=== PATIENT | male | born 1985 | race Caucasian/White ===

== ENCOUNTER 2016-07-16 01:27 | Inpatient (IN) | payer SELFPAY ==
[~2016-07-16] VITALS: Ht 175.3 cm; Wt 60.0 kg
--- NOTE | 2016-07-16 01:54 | EMERGENCY ROOM VISIT NOTE ---
History Report prepared by Raheem: Giovanni Wallace Under the Supervision of: Dr. Rosario Monterroso D.O. First contact with patient: 01:33 Chief Complaint: MENTAL HEALTH EVALUATION Stated Complaint: 302 - PSP History of Present Illness The patient is a 31 year old male who presents to the Emergency Room for an acute mental health evaluation. The patient's mother called the police after he told her that he would hang himself earlier tonight. The patient denies suicidal ideations, and states that he said he would hang himself to spite his mother. The patient admits to having half a beer and marijuana earlier. The patient has been 302'd in the past, which he also attributes to his mother. He denies a mental health history. The patient is homeless. He is currently watching a friend's place in [place] while they stay in [place]. The patient has been eating well. The patient cannot find a job because of his criminal record. He denies any abdominal pain, or urinary / bowel issues. The patient's mother told nursing staff that he has a history of paranoid schizophrenia. Source of History: patient, parent Onset: tonight Position: other (psyche) Quality: other (mental health evaluation) Timing: other (acute) Associated Symptoms: No abdominal pain, No diarrhea, No urinary symptoms Review of Systems See HPI for pertinent positives & negatives. A total of 10 systems reviewed and were otherwise negative. Past Medical & Surgical Medical Problems: (1) Bursitis, prepatellar, right (2) Schizotypal disorder Family History No pertinent family history Social History Smoking Status: Current Every Day Smoker Marital Status: single Housing Status: other Occupation Status: unemployed Current/Historical Medications No Active Prescriptions or Reported Meds Allergies Coded Allergies: No Known Allergies (Verified , 01/04/14) Physical Exam Vital Signs Date Time Temp Pulse Resp B/P Pulse Ox O2 Delivery O2 Flow Rate FiO2 07/16/16 02:51 75 18 121/71 100 Room Air 07/16/16 01:32 37.1 117 20 137/104 97 Room Air Physical Exam General: Extremely talkative but pleasant. Flight of ideas. HEENT: Head - normocephalic and atraumatic Pupils are equal, round, and reactive to light. Extraocular eye muscles are intact, and sclera are anicteric. Nose - moist nasal mucosa without discharge. Mouth - moist buccal mucosa. Oropharynx is nonerythematous and there is no tonsillar exudate or edema noted. Neck: Supple; no nuchal rigidity, cervical lymphadenopathy Heart: Regular rate and rhythm. There is a normal S1 and S2 with no murmurs, clicks, or gallops appreciated. Lungs: Clear to auscultation bilaterally with no wheezes, rales, or rhonchi. Abdomen: Soft, completely nontender, nondistended, with good bowel sounds. There are no palpable pulsatile masses or hepatosplenomegaly. There is no guarding, rigidity, or rebound noted. Extremities: No evidence of cyanosis, clubbing, or edema. There are easily palpable peripheral pulses. Skin: warm and dry with good turgor and no rashes. Psych: Denies suicidal ideation or plan. The patient is hyperverbal with a tangential thought process. Medical Decision & Procedures Laboratory Results 07/16/16 01:46 07/16/16 01:46 Test 07/16/16 01:46 07/16/16 02:48 Red Blood Count 5.08 M/uL (4.7-6.1) Mean Corpuscular Volume 86.6 fL (80-100) Mean Corpuscular Hemoglobin 32.1 pg (25-34) Mean Corpuscular Hemoglobin Concent 37.0 g/dl (32-36) RDW Standard Deviation 39.5 fL (36.4-46.3) RDW Coefficient of Variation 12.3 % (11.5-14.5) Mean Platelet Volume 9.7 fL (7.4-10.4) Anion Gap 8.0 mmol/L (3-11) Est Creatinine Clear Calc Drug Dose 74.3 ml/min Estimated GFR () 91.5 Estimated GFR (Non- 79.0 BUN/Creatinine Ratio 15.2 (10-20) Calcium Level 8.9 mg/dl (8.5-10.1) Total Bilirubin 2.4 mg/dl (0.2-1) Direct Bilirubin 0.4 mg/dl (0-0.2) Aspartate Amino Transf (AST/SGOT) 32 U/L (15-37) Alanine Aminotransferase (ALT/SGPT) 27 U/L (12-78) Alkaline Phosphatase 83 U/L (45-117) Total Protein 8.2 gm/dl (6.4-8.2) Albumin 4.6 gm/dl (3.4-5.0) Thyroid Stimulating Hormone (TSH) 1.830 uIu/ml (0.300-4.500) Ethyl Alcohol mg/dL < 3.0 mg/dl (0-3) Urine Opiates Screen NEG (NEG) Urine Methadone, Qualitative NEG (NEG) Urine Barbiturates NEG (NEG) Urine Phencyclidine (PCP) Level NEG (NEG) Ur Amphetamine/Methamphetamine NEG (NEG) MDMA (Ecstasy) Screen NEG (NEG) Urine Benzodiazepines Screen NEG (NEG) Urine Cocaine Metabolite NEG (NEG) Urine Marijuana (THC) POS (NEG) Laboratory results per my review. ED Course 0135: Past medical records reviewed. The patient was evaluated in room A8. A complete history and physical exam was performed. Laboratory studies were drawn as above. 0240: [facility] will see the patient. 0317: Spoke with Lonnie, the [facility] railroad yard worker. 0450: The patient is unwilling to be admitted voluntarily. 0520: The patient became hostile towards [facility] when he was told that he would be involuntarily admitted. He is now willing to go voluntarily. 0600: A bed search is being conducted. 0610: The patient refused to sign himself in when [facility] came to evaluate him. I signed the 302. Bed search will be continued. 0630: The patient was signed out to Dr. Shah at shift change to continue the bed search. Medical Decision The patient is a 31 year old male who presents to the ED for a mental health evaluation. Differential diagnosis includes drug intoxication, alcohol intoxication, mood disorder, suicidal ideation, exacerbation of paranoid schizophrenia. Laboratory interpretation: Normal H&H, no leukocytosis, glucose 125, TSH 1.8, normal renal function, total bilirubin 2.4, direct bilirubin 0.4, negative alcohol. Urine tox screen positive for marijuana. The patient presents to the emergency department after making suicidal threats to his mother. The patient admits to smoking marijuana. He is hyperverbal with a flight of ideas. He has a schizophrenia and is not taking medications at this time according to the staff for mobile crisis. He was given the opportunity sign himself in voluntarily as he had made suicidal statements but declined. The patient describes a history of inpatient psychiatric care in which he stays for 7 days then is discharged. The 302 was signed. The patient was evaluated by [facility] and they will accept him. Impression Primary Impression: Suicidal ideation Scribe Attestation The scribe's documentation has been prepared under my direction and personally reviewed by me in its entirety. I confirm that the note above accurately reflects all work, treatment, procedures, and medical decision making performed by me. Departure Information Dispostion Still a Patient Prescriptions No Active Prescriptions or Reported Meds Referrals No Doctor, Assigned (PCP) Patient Instructions A Signature Page, [facility]
[2016-07-16 02:04] LABS: MEAN CELL VOLUME 86.6 fL (80-100); MEAN CORPUSCULAR HEMOGLOBIN 32.1 pg (25-34); MEAN PLATELET VOLUME 9.7 fL (7.4-10.4); PLATELET COUNT 266 K/uL (130-400); RED BLOOD COUNT 5.08 M/uL (4.7-6.1)
[2016-07-16 02:25] LABS: BUN/CREATININE RATIO 15.2 (10-20); CALCIUM 8.9 mg/dl (8.5-10.1); CREATININE 1.2 mg/dl (0.60-1.40); POTASSIUM 3.6 mmol/L (3.5-5.1)
[2016-07-16 02:36] LABS: THYROID STIMULATING HORMONE 1.83 uIu/ml (0.300-4.500)
[2016-07-16 03:52] LABS: BENZODIAZEPINE, URINE NEG (NEG); COCAINE,URINE NEG (NEG); PHENCYCLIDINE, URINE NEG (NEG)
[2016-07-16] MEDS ORDERED: NURSING VERBAL MED ORDER ONE (06:45)
[2016-07-16 07:34] VITALS: O2SAT 100
[2016-07-16] MEDS ORDERED: ALUMINUM/MAGNESIUM SUSP 30 ML UDC PO PRN (08:30)
[2016-07-16] MEDS ORDERED: hydrOXYzine HCL 25 MG TAB PO PRN ×2 (08:30)
[2016-07-16] MEDS ORDERED: ACETAMINOPHEN 325 MG TAB PO PRN (08:30)
[2016-07-16] MEDS ORDERED: MAGNESIUM HYDROXIDE SUSP 30 ML UDC PO PRN (08:30)
[2016-07-16] MEDS ORDERED: BISMUTH SUBSALICYLATE PER ML OMNICELL CHARGE PO PRN (08:30)
[2016-07-16] MEDS ORDERED: SODIUM CHLORIDE 0.65% NA SOLN 45 ML (OCEAN) PRN (08:30)
[2016-07-16 08:39] VITALS: BP 121/71; PULSE 75; TEMP 37.1; Ht 175.3 cm; Wt 60.0 kg
[2016-07-16] MEDS ORDERED: LORAZEPAM 2 MG/ML 1 ML VIAL IM PRN (12:45)
[2016-07-16] MEDS ORDERED: HALOPERIDOL LACTATE 5 MG/ML 1 ML VIAL IM PRN (12:45)
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
[2016-07-17 06:49] VITALS: BP 116/77; PULSE 53; TEMP 36.6
--- NOTE | 2016-07-17 15:17 | Psychiatric Progress Notes ---
Progress Note Date of Service Jul 17, 2016. Chief Complaint "I will take you for your word". Subjective Patient was seen & assessed interval progress reviewed with Treatment Team. Per staff, patient slept fairly overnight, is attending groups, has not been aggressive but can be quite manic in appearance at times. Visited by stepfather last evening which reportedly went okay. Apparently the stepfather' s accent is so heavy that he was not well able to communicate with the staff to provide any additional formation. On interview, patient appears more calm and when I comment about this he states that he will take me for my word but will not characterize a change that he is able to appreciate. He is less motorically activated, however he does continue to jump out of his chair to demonstrate this or that at times during the interview. He is more focused on lack of emotional support from his mother today. He believes he can return to his mother's home the RV parked on the property at discharge. He remains interested and preoccupied by expensive clothing and asks if his stepfather is bringing in his [employer] shoes. He speaks of time spent in [place] in [place] and trying to avoid "tweakers." He denies suicidal ideation or homicidal ideation and he denies hallucinatory experiences. He remains refractory to considering any psychotropic medication trials. Review of Systems Constitutional: No chills, No fatigue, No fever, No problem reported, No sweats , No weakness, No weight loss Cardiovascular: No PND, No chest pain, No claudication, No edema, No orthopnea , No palpitations, No problem reported Sleep Information Total Hours of Sleep: 5.50 Meal Information Percent of Breakfast Consumed: 100 Percent of Lunch Consumed: 100 Percent of Dinner Consumed: 100 Mental Status Exam During interview pt is: alert and oriented, cooperative Appearance: other (well coiffed) Eye contact is: good Motor behavior is: psychomotor agitation Speech: is pressured, loud Affect: other (expansive) Mood is: other (fine) Thought process: tangential, perseveration Thought content: delusions Suicidal thought are: denied Homicidal thoughts are: denied Hallucinations: denies auditory, denies visual Cognition: memory grossly intact Intelligence estimated to be: average Insight: limited Judgement: limited Impression IMPRESSION: This is an interesting 31-year-old gentleman who sounds to have a history of similar presentations in the past. Per mother's report in the ER, he has a history of schizophrenia. Previously, he has been diagnosed with undifferentiated ptosis. He admits to crystal meth use yesterday which certainly may be precipitating some of his acute agitation and impulsivity. Consider schizoaffective disorder bipolar type as alternative diagnosis. He declines any psychotropic medications while here on his 302, so we will reserve that for emergency use only and see how he does. Continued Inpatient Care Patient requires a period of monitoring secondary to psychosis and agitation presently on 302 commitment Plan (1) Suicidal ideation 07/16: 1. The patient admitted on 302. We will provide a period of monitoring on the locked unit with provision for safety on suicide checks. 2. He will be encouraged to participate in unit programming as he is able to tolerate. 3. We will continue to expand database with additional history from family as able. Unclear if he has had any other recent psychiatric interventions and if he has we will certainly try to pursue those records additionally. 4. Admission labs reviewed as above. The only concern is isolated hyperbilirubinemia which appears to be chronic. The patient denies this has ever been worked up. He is not jaundiced. Will recommend medical followup for that, but does not appear to be an acute issue. 07/17 - Continues to deny suicidal ideation. No aggressive behaviors demonstrated. (2) Psychosis 07/16: - The patient declined consideration for low dose antipsychotics to help him feel more calm and composed presently. I did review with him that if he is unable to maintain behavioral self-control, that we may be forced to use medications over his objection in an emergency situation. He assured me that this would not occur. 07/17 - No emergency prn's needed - Agitation does appear a little improved today. Likely secondary to coming down from methamphetamine intoxication. Cannot rule out underlying bipolar spectrum illness, such as schizoaffective disorder, bipolar type. Patient continues to refuse consideration for antipsychotic or mood stabilizer trial - Patient is homeless long-standing. Dispositionally he may be difficult, however it sounds that he can possibly return to his mother's home at time of discharge (3) Intoxication 07/17 - likely amphetamine intoxication at presentation, resolving. denies abuse and declines SA tx Visit Code E&M Code: 83490 Data Vital Signs Last 24 Hrs: Date Time Temp Pulse Resp B/P Pulse Ox O2 Delivery O2 Flow Rate FiO2 07/17/16 06:49 36.6 53 16 116/77
[2016-07-18 06:53] VITALS: BP_SYST 108; BP_SYST 123; BP_DIAS 63; BP_DIAS 79; PULSE 74; PULSE 91; TEMP 36.6
--- NOTE | 2016-07-18 11:50 | Psychiatric Progress Notes ---
Progress Note Date of Service Jul 18, 2016. Interval History 31 yo male admitted on a 302 involuntary commitment after voicing suicidal ideation to his mother, who was the petitioner. He admits to using methamphetamines and cannabis. Mother reports a history of paranoid schizophrenia. Chief Complaint "I'm great, an 11/10.". Subjective Patient was seen & assessed interval progress reviewed with Treatment Team. The patient continues to be hypertalkative, today talking about his commitment, his mother whom he does not believe loves him, and his ongoing refusal of medications. He does not think that medications are helpful, and uses cannabis medicinally. His. use of other drugs he says is limited, and says that he only used meth one time. He bounces from subject to subject, and each one is discussed with great vehemence and affect. He talks almost inappropriately about the suggestion in the ER to use a catheter to obtain a urine sample. He reports that he plans to continue to live in an RV that is on one of his mother' s properties, but belongs to another individual. He plans to continue to refuse medications of any kind. He denies SI/HI, denies aud/vis hallucinations. He denies racing thoughts saying that he can control the speed of his thoughts, and denies elevated energy. Staff report that he has been hyperverbal and tangential. He was noted to be reading 3 books at once (bible, dictionary and a magazine). He has been easily irritable when interrupted and at times he is unable to participate appropriately in groups, being hard to follow or understand. Review of Systems Constitutional: + fatigue ENT: No dental problems, No hearing loss, No nasal symptoms, No problem reported, No sore throat, No tinnitus, No trouble swallowing, No unusual epistaxis Respiratory: No cough, No dyspnea at rest, No dyspnea on exertion, No hemoptysis, No problem reported, No shortness of breath, No sputum, No wheezing Cardiovascular: No PND, No chest pain, No claudication, No edema, No orthopnea , No palpitations, No problem reported Abdomen: No GI bleeding, No constipation, No diarrhea, No nausea, No pain, No problem reported, No vomiting Musculoskeletal: No calf pain, No joint pain, No muscle pain, No problem reported, No swelling Neurologic: No balance problems, No memory loss, No numbness/tingling, No paralysis, No problem reported, No vertigo, No weakness Psychiatric: + problem reported (Denies mood problems, but is clearly with euphoric mood, rapid/tangential thoughts) Integumentary: No bleeding, No color change, No itch, No new/changing skin lesions, No problem reported, No rash Sleep Information Total Hours of Sleep: 2.00 Meal Information Percent of Breakfast Consumed: 100 Percent of Lunch Consumed: 100 Percent of Dinner Consumed: 90 Mental Status Exam During interview pt is: alert and oriented, cooperative Appearance: appropriately dressed, other Eye contact is: good Motor behavior is: psychomotor agitation Speech: is pressured, loud Affect: labile Mood is: other (euphoric) Thought process: tangential, flight of ideas, perseveration Thought content: delusions Suicidal thought are: denied Homicidal thoughts are: denied Hallucinations: denies auditory, denies visual Cognition: memory grossly intact Intelligence estimated to be: average Insight: impaired Judgement: impaired Impression The patient remains with manic symptoms and delusions about his mother. He continues to refuse meds, and is disruptive in groups. We will attempt to get additional information from his mother as to his baseline as we will need to make a decision about ongoing inpatient treatment by Monday if we are to file for a 303. He is not demonstrating unsafe behaviors here, and so no grounds to force meds at this time. The question will be whether he represents an ongoing risk to himself given his current manic/psychotic symptoms and whether he will require involuntary treatment including forcing meds over objection. Continued Inpatient Care Patient requires a period of monitoring secondary to psychosis and agitation presently on 302 commitment Plan (1) Suicidal ideation 07/16: 1. The patient admitted on 302. We will provide a period of monitoring on the locked unit with provision for safety on suicide checks. 2. He will be encouraged to participate in unit programming as he is able to tolerate. 3. We will continue to expand database with additional history from family as able. Unclear if he has had any other recent psychiatric interventions and if he has we will certainly try to pursue those records additionally. 4. Admission labs reviewed as above. The only concern is isolated hyperbilirubinemia which appears to be chronic. The patient denies this has ever been worked up. He is not jaundiced. Will recommend medical followup for that, but does not appear to be an acute issue. 07/17 - Continues to deny suicidal ideation. No aggressive behaviors demonstrated. 07/18 - Continues to refuse meds. He remains with euphoric mood, racing thoughts and lack of insight - Will continue to gather information toward the need for additional inpatient treatment. (2) Psychosis 07/16: - The patient declined consideration for low dose antipsychotics to help him feel more calm and composed presently. I did review with him that if he is unable to maintain behavioral self-control, that we may be forced to use medications over his objection in an emergency situation. He assured me that this would not occur. 07/17 - No emergency prn's needed - Agitation does appear a little improved today. Likely secondary to coming down from methamphetamine intoxication. Cannot rule out underlying bipolar spectrum illness, such as schizoaffective disorder, bipolar type. Patient continues to refuse consideration for antipsychotic or mood stabilizer trial - Patient is homeless long-standing. Dispositionally he may be difficult, however it sounds that he can possibly return to his mother's home at time of discharge (3) Intoxication 07/17 - likely amphetamine intoxication at presentation, resolving. denies abuse and declines SA tx Discharge / Aftercare Planning Primary Care Physician: Name: none Psychiatrist: Name: none Therapist: Name: none Donor Services Technician: Name: none Visit Code E&M Code: 54872 Risk Factors Assessment Male: Yes : Yes /single/: No Health problems: No Mental Health Diagnoses: Yes Substance use disorders: Yes Previous psychiatric stay: Yes Hopelessness: No Protective Factors Assessment Sabianist beliefs: Yes : No Responsible for young children: No Employed: No Stable relationships: No Supportive family: Yes Data Vital Signs Last 24 Hrs: Date Time Temp Pulse Resp B/P Pulse Ox O2 Delivery O2 Flow Rate FiO2 07/18/16 06:53 36.6 74 18 108/63 91 123/79 Meds Administered Last 24 Hrs: Current Inpatient Medications Medications (Trade) Dose Ordered Sig/[place] Route Start Time Stop Time Status Last Admin Dose Admin Acetaminophen (Tylenol Tab) 650 mg Q4H PRN PO 07/16/16 08:30 08/15/16 08:29 Al Hydroxide/Mg Hydroxide (Maalox Susp) 30 ml Q4H PRN PO 07/16/16 08:30 08/15/16 08:29 Bismuth Subsalicylate (Kaopectate Liqd) 15 ml DAILY PRN PO 07/16/16 08:30 08/15/16 08:29 Magnesium Hydroxide (Milk Of Magnesia Susp) 30 ml DAILY PRN PO 07/16/16 08:30 08/15/16 08:29 Sodium Chloride ([place] Nasal [place]) PRN PRN NA 07/16/16 08:30 08/15/16 08:29 Hydroxyzine HCl (Vistaril Tab) 50 mg HSZ PRN PO 07/16/16 08:30 08/15/16 08:29 Hydroxyzine HCl (Vistaril Tab) 25 mg Q4H PRN PO 07/16/16 08:30 08/15/16 08:29 Haloperidol Lactate (Haldol Inj) 5 mg Q4H PRN IM 07/16/16 12:45 08/15/16 12:44 Lorazepam (Ativan Inj) 2 mg Q4H PRN IM 07/16/16 12:45 08/15/16 12:44 Lab Results Last 24 Hrs: 07/16/16 01:46 07/16/16 01:46 Test 07/16/16 01:46 07/16/16 02:48 Red Blood Count 5.08 M/uL (4.7-6.1) Mean Corpuscular Volume 86.6 fL (80-100) Mean Corpuscular Hemoglobin 32.1 pg (25-34) Mean Corpuscular Hemoglobin Concent 37.0 g/dl (32-36) RDW Standard Deviation 39.5 fL (36.4-46.3) RDW Coefficient of Variation 12.3 % (11.5-14.5) Mean Platelet Volume 9.7 fL (7.4-10.4) Anion Gap 8.0 mmol/L (3-11) Est Creatinine Clear Calc Drug Dose 74.3 ml/min Estimated GFR () 91.5 Estimated GFR (Non- 79.0 BUN/Creatinine Ratio 15.2 (10-20) Calcium Level 8.9 mg/dl (8.5-10.1) Total Bilirubin 2.4 mg/dl (0.2-1) Direct Bilirubin 0.4 mg/dl (0-0.2) Aspartate Amino Transf (AST/SGOT) 32 U/L (15-37) Alanine Aminotransferase (ALT/SGPT) 27 U/L (12-78) Alkaline Phosphatase 83 U/L (45-117) Total Protein 8.2 gm/dl (6.4-8.2) Albumin 4.6 gm/dl (3.4-5.0) Thyroid Stimulating Hormone (TSH) 1.830 uIu/ml (0.300-4.500) Ethyl Alcohol mg/dL < 3.0 mg/dl (0-3) Urine Opiates Screen NEG (NEG) Urine Methadone, Qualitative NEG (NEG) Urine Barbiturates NEG (NEG) Urine Phencyclidine (PCP) Level NEG (NEG) Ur Amphetamine/Methamphetamine NEG (NEG) MDMA (Ecstasy) Screen NEG (NEG) Urine Benzodiazepines Screen NEG (NEG) Urine Cocaine Metabolite NEG (NEG) Urine Marijuana (THC) POS (NEG)
--- NOTE | 2016-07-18 23:06 | Medical Student: BHU Only ---
Psychiatric Progress Note Date of Service: Jul 18, 2016. IDENTIFYING DATA: Milo Cannon is a 31 year old male with PMH significant for paranoid schizophrenia who was admitted on 302 commitment on 07/16/16 after making threats to hang himself in order to spite mother. Patient reports using marijuana medicinally but otherwise refuses all medications. CHIEF COMPLAINT: "I'm only here because of my mother." SUBJECTIVE: The patient was seen and assessed today, and progress was reviewed with nursing. The patient reports doing really well, rating his mood as 11/10. He continues to be hyperverbal, grandiose, inappropriate, and paranoid during the interview. Patient continuously asks if he is going to be examined and offers to pull his pants down. In addition, He accuses staff of hoarding spring water whereas he is being given contaminated or purified water only. He continues to blame his mother for his admission, citing [facility] is in [facility]. He admits to being "overly theatrical" with his mother but is frustrated that she has led to his admission for the third time. He thinks he was doing fine before ; he stayed in an RV on his mother's property in [place]. Prior, he did chores and took care of toddlers in a house of friends who were all too high on heroin to do such tasks themselves. He continues to deny suicidal ideations, homicidal ideations, and hallucinations. Patient slept for 3 hours last night, feeling targeted by staff for not adjusting his room temperature and giving him blankets instead. He was resting in the group room upon evaluation. Patient is eating all of his meals. He continues to refuse medications, stating that pharmacological medications are "sorcery" and "black magic." He is attending programming, although staff notes he continues to be inappropriate with disorganized thoughts. During group therapy, he offers another patient to stay with him after leaving the unit. Staff were able to get in touch with his mother who provided more psychiatric history. Mom lives with her in [place]. She confirms he smokes marijuana daily and has had 2 prior admissions- one at [facility] and one at [facility]. Mom fears for her safety and refuses to let DS live with her unless he is stable and on medication. ROS: Further ROS unable to be elicited due to patient mental status MSE: Appearance is that of a neatly groomed, inappropriately dressed male (staff asked him to turn his clothes inside out) who appears his stated age. The patient is cooperative with this interview. Eye contact is good. Motor behavior is normal. Speech: Hyperverbal, elevated tone. Affect:[place] excitable. Mood: Euphoric. Thought process: Tangential; flight of ideas Thought content: Patient denies SI/HI and hallucinations. Patient is paranoid and delusional. He is highly suspicious of unit staff, accusing staff of hoarding uncontaminated water. He believes his mother is part of the [facility]. He considers pharmacologic therapy to be "sorcery" or "black magic" but uses marijuana medicinally. Perception: Patient denies illusions and hallucinations. Cognition: Patient is alert and oriented x3. Intelligence is estimated to be average. Insight is estimated to be poor. Judgment is estimated to be poor. Patient does not believe he has a mental illness and is unwilling to take medication. He does not understand why his mother wanted him admitted and places her at fault for his continuous admissions. ASSESSMENT: Patient is a 31 year old male with PMH significant for paranoid schizophrenia who continues to experience paranoia and delusions. He is unwilling to take medication. Staff reports regular attendance to programming but consistently describe inappropriate and disruptive behavior. On examination, he continues to be hyperverbal with tangential thought process. PLAN: 1. Suicidal Ideations secondary to Paranoid Schizophrenia a. Patient was admitted on 302. Petition to file for 303 must be completed by 07/19/16 if provider chooses to do so. Patient continues to deny suicidal ideations, however. b. Patient will be encouraged to attend group and individual therapy. 2. Psychosis secondary to Paranoid Schizophrenia a. Patient refuses to consider medication. Patient does not appear to be at imminent risk to himself or others so criteria for medication over objection has not been met. b. He will continue to be monitored. 3. Intoxication a. Patient admitted to crystal meth use on Monday07/15/16 which may have contributed to acute agitation and psychosis. b. Patient is not complaining of symptoms associated with methamphetamine withdrawal. c. Continue monitoring patient. 4. Aftercare Planning: a. Mother states she is unwilling to accept patient unless stable on medication. b. Patient is homeless. More information required to determine whether he can return to in [place].
[2016-07-19 06:45] VITALS: BP_SYST 122; BP_SYST 127; BP_DIAS 80; BP_DIAS 81; PULSE 63; PULSE 77; TEMP 36.5
[2016-07-19 09:13] LABS: REFERENCE QUEST TEST REPORT
--- NOTE | 2016-07-19 09:33 | Psychiatric Progress Notes ---
Progress Note Date of Service Jul 19, 2016. Interval History 31 yo male admitted on a 302 involuntary commitment after voicing suicidal ideation to his mother, who was the petitioner. He admits to using methamphetamines and cannabis. Mother reports a history of paranoid schizophrenia. Chief Complaint "I'm not answering that question, if you don't know, you're incompetent." Subjective Patient was seen & assessed interval progress reviewed with Treatment Team. Staff report he attends groups, but is inappropriate and paranoid, argumentative with staff, and makes frequent derogatory comments. He continues to refuse medications, does not believe he has a mental illness, and blames his mother for his admission. He was seen in his room this morning and was extremely argumentative, interrupting before the question was completed to say he doesn't want to answer the same questions again, and making derogatory statements about the health care providers at this facility and in general. He does not believe he has a mental illness or needs to be here, and blames his mother with very colorful language for his admission. He admits that he made comments to her that someone could hang themselves in the garage, but denies that he buster ever harm himself, says he is not suicidal and in fact has been doing "everything I can to survive." He says he "loves life" and that he plans to return to the where he has been living, which has heat and water, and will use the bus to get there. He does not have a car and does not drive per his report. He at times says he loves it here as he gets all of his needs met and good food, and other times speaks in very demeaning terms about his treatment. Sleep Information Total Hours of Sleep: 3.00 Meal Information Percent of Breakfast Consumed: 100 Percent of Lunch Consumed: 100 Percent of Dinner Consumed: 100 Mental Status Exam During interview pt is: alert and oriented, uncooperative Appearance: appropriately groomed (hair slicked back, wearing street clothes with a hospital gown on top), other Eye contact is: good (staring) Motor behavior is: psychomotor agitation (animated gestures) Speech: is pressured, loud Affect: labile (switches rapidly from pleasant to angry ), irritable Mood is: other ("oh just wonderful, full of wonder") Thought process: tangential, looseness of associations, perseveration Thought content: paranoid Suicidal thought are: denied Homicidal thoughts are: denied Hallucinations: denies auditory, denies visual Cognition: language grossly intact Intelligence estimated to be: average Insight: impaired Judgement: impaired Impression The patient remains with manic symptoms and paranoia about his mother and medical treatment. He continues to refuse meds, refuses aftercare, and is disruptive in groups. His mother was contacted and reported that she lives in [place] , but has been in contact with the patient for the past 3 days, and he has been agitated and argumentative. He has made comments about hanging or shooting himself. He has a hx of being sentenced to longterm for assault and not paying child support. She says that she that he "choses to be homeless." He is not demonstrating unsafe behaviors here, has consistently denied SI and HI, and is attending to his ADLs, so there are no grounds for further commitment on a 303 or to force medications over objection. Continued Inpatient Care Patient requires a period of monitoring secondary to psychosis and agitation presently on 302 commitment Plan (1) Suicidal ideation 07/16: 1. The patient admitted on 302. We will provide a period of monitoring on the locked unit with provision for safety on suicide checks. 2. He will be encouraged to participate in unit programming as he is able to tolerate. 3. We will continue to expand database with additional history from family as able. Unclear if he has had any other recent psychiatric interventions and if he has we will certainly try to pursue those records additionally. 4. Admission labs reviewed as above. The only concern is isolated hyperbilirubinemia which appears to be chronic. The patient denies this has ever been worked up. He is not jaundiced. Will recommend medical followup for that, but does not appear to be an acute issue. 07/17 - 07/19 - Continues to deny suicidal ideation. No aggressive or self injurious behavior here. (2) Psychosis 07/16: - The patient declined consideration for low dose antipsychotics to help him feel more calm and composed presently. I did review with him that if he is unable to maintain behavioral self-control, that we may be forced to use medications over his objection in an emergency situation. He assured me that this would not occur. 07/17 - No emergency prn's needed - Agitation does appear a little improved today. Likely secondary to coming down from methamphetamine intoxication. Cannot rule out underlying bipolar spectrum illness, such as schizoaffective disorder, bipolar type. Patient continues to refuse consideration for antipsychotic or mood stabilizer trial - Patient is homeless long-standing. Dispositionally he may be difficult, however it sounds that he can possibly return to his mother's home at time of discharge 07/18 - Continues to refuse meds. He remains with euphoric mood, racing thoughts and lack of insight - Will continue to gather information toward the need for additional inpatient treatment. 07/19 - Continues to demonstrate paranoia and refuses treatment and medications. Is going to some groups, but refusing outpatient treatment, which he has done in the past. Although he is clearly mentally ill and may benefit from treatment , he does not meet criteria for a 303 commitment or medications over objection, as he is doing his ADLs and has been able to provide for his own basic needs, including longterm (has an RV with heat and water that he has been living in and can return to), food, and uses to bus system to get around. He has consistently denied thoughts of harming himself or others and has not engaged in self injury here. After reviewing his records and history, I do not think that there is an identifiable imminent risk to his own safety or the safety of others that would warrant pursuing a 303 involuntary commitment or forcing medications over his objection. He is certainly at increased risk of harm to himself and others compared to the general population, but I do not see evidence of an imminent risk based on his behavior here. He admits to making statements about suicide to his mother, but denies that he intended to harm himself and describes making them in order to upset her, which is consistent with his attention seeking and antisocial behavior here. We will continue to encourage him to engage in treatment, but if he refuses to sign in voluntarily at the conclusion of his 302 , he will be discharged AMA. 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 As he is now living in [place], will submit the [facility] Form as well as the [place] DMV form, as required by law, due to safety concerns given ongoing substance abuse and psychosis, as he is not safe to drive. (3) Intoxication 1/8 - amphetamine intoxication at presentation, resolving. denies abuse and declines SA tx (4) Cannabis abuse Risks of continues substance abuse reviewed. Refuses recommendations for treatment. (5) Methamphetamine abuse Risks of continued substance abuse reviewed. Refuses recommendations for treatment. Discharge / Aftercare Planning Primary Care Physician: Name: none Psychiatrist: Name: none Therapist: Name: none Shellfish Processing Machine Tender: Name: none Visit Code E&M Code: 31812 Risk Factors Assessment Male: Yes : Yes /single/: Yes Access to guns: No Health problems: No Mental Health Diagnoses: Yes Substance use disorders: Yes Previous attempt: No Family history of suicide: No Previous psychiatric stay: Yes Hopelessness: No Smoker: Yes Protective Factors Assessment Yarsanism beliefs: Yes : No Responsible for young children: No Employed: No Stable relationships: No Supportive family: Yes Good rapport with provider: No Data Vital Signs Last 24 Hrs: Date Time Temp Pulse Resp B/P Pulse Ox O2 Delivery O2 Flow Rate FiO2 07/19/16 06:45 36.5 63 16 127/81 77 122/80
[2016-07-20 06:41] VITALS: BP_SYST 129; BP_SYST 148; BP_DIAS 76; BP_DIAS 79; PULSE 90; PULSE 99; TEMP 36.8
--- NOTE | 2016-07-20 10:27 | Discharge Instructions ---
Discharge Information Report Includes Report will include the: Discharge Instructions & Summary Admission Admission Date / Time: Jul 16, 2016 at 06:45 Reason for Admission: Paranoid Schizophrenia Discharge Discharge Diagnosis / Problem: Psychosis not otherwise specified Condition at Discharge: Poor Discharge Goals Goal(s): Improve function, Improve disease control, Learn about illness, Therapeutic intervention, Specific goals (Recommended medications and outpatient follow up, which was declined) Activity Recommendations Activity Limitations: as noted below Driving or Machine Use: No driving due to untreated mental illness and psychotic symptoms . Instructions / Follow-Up Instructions / Follow-Up . SPECIAL CARE INSTRUCTIONS: 1. It is recommended that you take medication for psychotic and manic symptoms , which you declined. It is recommended that you follow up with outpatient mental health services, which you declined. 2. Utilize new healthy coping skills, anger management skills, and stress management skills learned during your hospitalization. Journal feelings and process them with a support person. Identify stressors or situations that may result in relapse, deterioration or inappropriate behaviors and develop a plan to deal with those issues. 3. If your coping skills are ineffective and you are in crisis, contact your outpatient providers for direction. If unable to reach your providers, please call the CAN HELP LINE AT or go to the closest Emergency Room. 4. You should not drink alcohol or take un-prescribed drugs, including marijuana, meth, and other drugs of abuse. 5. You have been provided with the Mental Health Advance Directives Pamphlet for your review. AFTERCARE APPOINTMENTS: * Please call your insurance company prior to your scheduled appointment to confirm your aftercare providers are covered. Take your insurance information to your appointments. . Discharge / Aftercare Planning Primary Care Physician: Name: none Psychiatrist: Name: none Therapist: Name Of Therapist: none Telephone Triage Nurse: Name: none . Follow-Up Care Plan for Follow-Up Care: Patient refused recommendations for outpatient follow up. Current Hospital Diet Patient's current hospital diet: Regular Diet Discharge Diet Recommended Diet: Regular Diet Procedures Procedures Performed: No Pending Studies Pending Studies at Discharge: No Medical Emergencies . Who to Call and When: Medical Emergencies: For questions or emergencies related to your hospital stay, please contact the Inpatient Behavioral Health Unit at [phone]. A psychiatric aide instructor is on-call 30/01 for the Behavioral Health Unit for emergencies At any time you feel your situation is an emergency, you may also call 911 immediately. . Non-Emergent Contact Non-Emergency issues call your: Telephone Triage Nurse (You declined a referral for case management services, but can contact [facility] if you would like to receive services.) Past History Medical & Surgical History: (1) Noncompliance (2) Cannabis abuse (3) Methamphetamine abuse Advance Directives Existing Advance Directive: No Do You Have an Existing Mental: No Existing Living Will: No Existing Power of Production Control Expediter: No Discharge Summary Admission HPI Per the Admitting provider: Please see admission H&P. Admission Exam Per the Admitting provider: Please see admission H&P. Hospital Course (1) Suicidal ideation 07/16: 1. The patient admitted on 302. We will provide a period of monitoring on the locked unit with provision for safety on suicide checks. 2. He will be encouraged to participate in unit programming as he is able to tolerate. 3. We will continue to expand database with additional history from family as able. Unclear if he has had any other recent psychiatric interventions and if he has we will certainly try to pursue those records additionally. 07/17 - 07/20 - Consistently denied SI and HI here, and no aggressive or self injurious behavior since admission. (2) Psychosis 07/16: - The patient declined consideration for low dose antipsychotics to help him feel more calm and composed presently. I did review with him that if he is unable to maintain behavioral self-control, that we may be forced to use medications over his objection in an emergency situation. He assured me that this would not occur. 07/17 - No emergency prn's needed - Agitation does appear a little improved today. Likely secondary to coming down from methamphetamine intoxication. Cannot rule out underlying bipolar spectrum illness, such as schizoaffective disorder, bipolar type. Patient continues to refuse consideration for antipsychotic or mood stabilizer trial - Patient is homeless long-standing. Dispositionally he may be difficult, however it sounds that he can possibly return to his mother's home at time of discharge 07/18 - Continues to refuse meds. He remains with euphoric mood, racing thoughts and lack of insight - Will continue to gather information toward the need for additional inpatient treatment. 07/19 - Continues to demonstrate paranoia and refuses treatment and medications. Is going to some groups, but refusing outpatient treatment, which he has done in the past. Although he is clearly mentally ill and may benefit from treatment , he does not meet criteria for a 303 commitment or medications over objection, as he is doing his ADLs and has been able to provide for his own basic needs, including prison (has an RV with heat and water that he has been living in and can return to), food, and uses to bus system to get around. He has consistently denied thoughts of harming himself or others and has not engaged in self injury here. After reviewing his records and history, I do not think that there is an identifiable imminent risk to his own safety or the safety of others that would warrant pursuing a 303 involuntary commitment or forcing medications over his objection. He is certainly at increased risk of harm to himself and others compared to the general population, but I do not see evidence of an imminent risk based on his behavior here. He admits to making statements about suicide to his mother, but denies that he intended to harm himself and describes making them in order to upset her, which is consistent with his attention seeking and antisocial behavior here. We will continue to encourage him to engage in treatment, but if he refuses to sign in voluntarily at the conclusion of his 302 , he will be discharged AMA. 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 As he is now living in [place], will submit the [facility] Psychiatric Reporting Form as well as the [place] DMV form, as required by law, due to safety concerns given ongoing substance abuse and psychosis, as he is not safe to drive. 07/20 - Patient continues to adamantly refuse recommendations for medication for psychotic and manic symptoms, and refuses to follow up with outpatient providers. Have encouraged [facility] to [facility] if he changes his mind and is willing to accept services, and he expressed understanding. Although he continues to display manic symptoms and paranoia, he is attending to his ADLs independently, has a reasonable plan for discharge and ways to provide for prison, clothing, and food, and is not at acute risk of harm to himself or others. He is at increased chronic risk for harm to both himself and others due to his sex, psychiatric diagnosis, psychotic and manic symptoms, lack of insight, refusal to accept treatment, and lack of aftercare and local supports, but these risk factors are not amenable to further treatment, he does not meet criteria for a 303 commitment nor meds over objection, and the risk is not imminent. He was offered a voluntary admission, which he declined. He will therefore be discharged AMA. His mother has been advised of the discharge plan, and he denies access to guns or thoughts of harming himself or anyone else. He is not hallucinating or responding to internal stimuli. (3) Intoxication 1/8 - amphetamine intoxication at presentation, resolving. denies abuse and declines SA tx (4) Cannabis abuse Risks of continues substance abuse reviewed. Refuses recommendations for treatment. (5) Methamphetamine abuse Risks of continued substance abuse reviewed. Refuses recommendations for treatment. (6) Hyperbilirubinemia 4. Admission labs revealed isolated hyperbilirubinemia which appears to be chronic. The patient denies this has ever been worked up. He is not jaundiced. Will recommend medical followup for that, but does not appear to be an acute issue. - Follow up with PCP Risk Factors Assessment Male: Yes : Yes /single/: Yes Access to guns: No Health problems: No Mental Health Diagnoses: Yes Substance use disorders: Yes Previous attempt: No Family history of suicide: No Previous psychiatric stay: Yes Hopelessness: No Smoker: Yes Protective Factors Assessment Rastafarian beliefs: Yes : No Responsible for young children: No Employed: No Stable relationships: No Supportive family: Yes Good rapport with provider: No Absence of risk factors above: Yes (Consistently denying SI and HI here, no act of furtherance, no self injurious or violent behavior here, able to safety plan and agrees to return to the hospital if he feels unsafe, states he has multiple options of places to stay locally and has been living his current homeless lifestyle for years, and has demonstrated ability to perform ADLs independently while here.) Day of Discharge Assessment Hospital course: Haldol and Ativan as needed for agitation due to psychosis were ordered on admission, but the patient did not require any doses throughout his stay. He consistently denied recommendations that he take a scheduled antipsychotic medications for psychotic and manic symptoms, stating that he did not believe psychiatric medications were good for anybody, or would be helpful for him. He was educated about his diagnosis and the concern about his symptoms, but felt his circumstances (strained relationship with mother) and his baseline personality explained his symptoms adequately, and did not believe that he had a mental illness. He initially appeared to sleep well, but only slept 2-3 hours his last 3 days in the hospital, and also had manic symptoms of elevated mood, excessive and rapid speech, loosening of associations, and grandiosity. He consistently denied thoughts of harming himself or anyone else, and denied hallucinations. He attended and participated in groups on the unit, was appropriate during some groups, but required redirection due to excessive speech and disruptive behavior at times. His stepfather visited, and his mother was contacted by staff for collateral information, as she had return to her home in [place]. She reported that although she and her live in [place], they have a property in [place] with the patient has been staying. She described the patient is agitated with frequent outbursts and arguments. She stated that he had threatened to hang himself or shoot himself, and was paranoid, talking about a "secret society" that is out of harm him. He did not endorse delusions or paranoia about this while on the unit. She stated that despite 2 previous psychiatric hospitalizations to [facility] and [facility], he has never followed up with outpatient care or taken medications. She also stated that he frequently attempts to intimidate her, especially when she asks him to contribute by doing chores, and gave an example that he threatened to break everything in the house when she asked him to do the dishes. She contacted staff multiple times after being informed that he would likely be discharged at the end of his 302 commitment, and spoke with this physician about her concerns. She was understanding of the limitations of involuntary treatment and inability to force medications at this time. The patient remained angry at his mother during the first part of his hospitalization, blaming her for his admission, but by the end of his hospitalization stated that he was hoping to reconcile with her. He talked about a long-standing strained relationship, and feeling that his mother did not love him because of her poor relationship with the patient's father. Attempts were made to educate him about the risks of continued substance abuse, which she was resistant to, feeling that marijuana was helpful for him. He refused recommendations to get substance abuse treatment or abstain from drug use. He was able to perform all ADLs independently, and was able to safety plan , stating he had several options for housing, including multiple friends in the area whom he has stayed with in the past. He was able to discuss the events that led to his admission, and admitted that he had made suicidal statements to his mother, but maintained that he only said this to upset her, and that he never intended to harm himself, he talked about his love of life and his plans for the future, and consistently denied any thoughts of harming himself throughout his hospital stay. Day of discharge assessment: Patient apologized for his behavior yesterday, saying "I didn't know you were the doctor." He talked at length about his relationship with his mother and how he loves her but thinks she "just sees my father when she looks at me, she hates him, and I'm his spitting image." He admits that he made provocative statements about hanging himself to her in the context of an argument, but denies that he ever was actually suicidal or considered harming himself, saying he loves life and has plans for his future, denies feeling hopeless, and denies access to guns or previous suicide attempts. He asked appropriate questions about his diagnosis and we reviewed psychotic and manic symptoms, his current diagnosis and what other diagnoses he may have (schizophrenia, schizoaffective, bipolar disorder), and the treatment recommendations (medication and outpatient follow up with a psychiatrist and therapist). He continues to adamantly refuse medications, saying he believes drug companies are evil and that psychiatric medications are poison, and that he can manage his symptoms behaviorally. He denies that his symptoms are preventing him from functioning or providing for his basic needs, saying he has multiple options for places to stay, including his mother's property where he has been living with a friend, or with several other friends who live locally. He says he has been living this lifestyle for the past year and has a bike which he uses to get around, along with the local bus system, and is able to get his own food through those means. He says he has lots of warm clothes and is also aware of local resources he can use if he finds himself without housing, including [facility]. He asks about returning to the hospital for a voluntary admission if needed in the future, and we reviewed what a voluntary admission entails (including willingness to take medication, participate in therapy, family sessions, and arrangement of aftercare). He was advised again of recommendations to take medication and follow up with outpatient providers, and declined, stating he would like to leave. Explained he would be discharged against medical advice, and the risks were reviewed (worsening of manic and or psychotic symptoms, suicidal thoughts, thoughts to harm others, confusion, poor judgment, etc). He expressed understanding of the risks, and was able to review his safety plan, and agreed to return to the hospital if he felt unsafe. Well nourished, well developed WM appearing stated age. Casually dressed and adequately groomed. Calmer and more cooperative today, no aggressive or threatening behavior. Seated in NAD, with staring eye contact and no abnormal movements. Speech is excessive and rapid, normal volume. Mood is "great," and affect is expansive, stable and congruent. Thoughts are loose, but able to be goal directed with redirection. The patient denied suicidal and homicidal ideation and was able review his safety plan. No paranoia or delusions expressed, denies hallucinations, and did not appear to be responding to internal stimuli. Cognition was grossly intact. Alert and oriented to person, place and time. Intelligence is consistent with level of education. Insight and and judgment are impaired. Laboratory Refer to printed laboratory reports Total Time Total Time Spent (min): Greater than 30 minutes Total Time Included: examination of the patient, discharge planning, medication reconciliation, communication with other providers, and (treatment team discussion) Tobacco Cessation at Discharge FDA approved Prescription: patient refused
== END 2016-07-20 11:39 | disposition home or self-care (01) | DRG 885 ==
LOC: C.EDB 01:30 → C.MHU 06:45
PROVIDERS: ADMIT Student in an Organized Health Care Education/Training Program; ATTEND Student in an Organized Health Care Education/Training Program
DX: F25.0 Schizoaffective disorder, bipolar type (principal); R45.851 Suicidal ideations; F17.210 Nicotine dependence, cigarettes, uncomplicated; Z59.0 Homelessness; F15.129 Other stimulant abuse with intoxication, unspecified; F12.10 Cannabis abuse, uncomplicated; E80.6 Other disorders of bilirubin metabolism; Z91.19 Patient's noncompliance with other medical treatment and regimen; Z53.29 Procedure and treatment not carried out because of patient's decision for other reasons